=== PATIENT | male | born 1975 | race Caucasian/White ===

== ENCOUNTER → 2017-06-15 07:51 | Outpatient (CLI) | payer MEDICARE, MEDICAID, SELFPAY ==
[2017-06-15 09:04] LABS: Absolute Lymphocyte Count 2.77 X10^3/ul (0.83-4.51); Absolute Neutrophil Count 2.5 X10^3/uL (2.0-7.7); Basophil# 0.02 X10^3/uL; Basophil% 0.3 % (0-1); Eosinophil# 0.06 X10^3/uL; Hematocrit 46.3 % (40-54); Hemoglobin 15.7 g/dl (13.0-16.5); Lymphocyte # 2.77 X10^3/ul (4.0); Lymphocyte % 47.1 % (19-41); Mean Corp Hgb Conc 33.9 g/gl (32-36); Mean Corpuscular Hgb 31.4 pg (27.0-32.0); Mean Corpuscular Volume 92.6 fL (80-94); Mean Platelet Vol. 9.9 fl (6.2-12.0); Monocyte# 0.47 X10^3/uL; Neutrophil # 2.54 X10^3/uL (2.7-7.7); Neutrophil % 43.3 % (47-70); Platelet Count 289 K/mm3 (150-450); RBC Distribution Width CV 13.1 % (11.6-14.6); RBC Distribution Width SD 43.7 fl (35.1-43.9); White Blood Count 5.9 K/mm3 (4.4-11.0)
[2017-06-15 09:06] LABS: POSITIVE COUNT NO; POSITIVE DIFFERENTIAL NO; POSITIVE MORPHOLOGY NO
[2017-06-15 09:30] LABS: Valproic Acid (Depakene) Level 78 ug/mL (50-100)
[2017-06-15 09:31] LABS: AST(SGOT) 38 U/L (15-37); Alanine Aminotransfer ALT/SGPT 81 U/L (16-61); Albumin, Serum 4.1 g/dL (3.2-5.0); Alkaline Phosphatase 231 U/L (45-117); Anion Gap 8 (5-15); BUN 28 mg/dL (7-18); BUN/Creat Ratio 23.5 RATIO (10-20); Calcium,Total 9.4 mg/dL (8.5-10.1); Chloride 104 mmol/L (98-107); Creatinine, Serum 1.19 mg/dL (0.70-1.30); EST Glomerular Filtration Rate 72 mL/min (>60); Est Glom Filt Rate - Afr Amer 87 mL/min (>60); Globulin 4.1 g/dL (2.2-4.2); Glucose 91 mg/dL (74-106); Potassium 4.3 mmol/L (3.5-5.1); Protein, Total 8.2 g/dL (6.4-8.2); Sodium Level 140 mmol/L (136-145)
[2017-06-19 14:45] LABS: Lamotrigine (Lamictal) Level 7.3 ug/mL (2.0-20.0)
== END ==
PROVIDERS: Family Provider Family Medicine Geriatric Medicine; PCP Family Medicine Geriatric Medicine; Visit Provider Psychiatry & Neurology Neurology
DX: G40.109 Localization-related (focal) (partial) symptomatic epilepsy and epileptic syndromes with simple partial seizures, not intractable, without status epilepticus (principal)
CPT/HCPCS: 36415; 80053; 80164; 82542; 85025

== ENCOUNTER 2017-10-07 13:49 | Emergency (ER) | payer MEDICARE, MEDICAID, SELFPAY ==
[2017-10-07 13:50] VITALS: BP 121/82; PULSE 81; RESP 16; TEMP 37; O2SAT 98; BMI 27.2
--- NOTE | 2017-10-07 14:14 | CT_ITS ---
STUDY: CT ABDOMEN AND PELVIS WITHOUT CONTRAST REASON FOR EXAM: Male, 42 years old. Hematuria. RADIATION DOSAGE (If Supplied By Facility): CTDIvol = ( 12.27 ) mGy, DLP = ( 560.76 ) mGycm TECHNIQUE: Transaxial images were obtained from the dome of the diaphragm to the symphysis pubis without oral contrast, and without intravenous contrast. Sagittal and coronal images were reconstructed. Individualized dose optimization techniques were used for this CT. COMPARISON: None. FINDINGS: Evaluation of the abdominal viscera is limited in the absence of intravenous contrast. The visualized lung bases are clear. The visualized portions of the heart and pericardium are within normal limits. There are no calcified gallstones present. The liver demonstrates an unremarkable unenhanced appearance. The spleen is normal in size. The pancreas demonstrates an unremarkable unenhanced appearance. The adrenal glands are within normal limits. There are no obstructing renal stones. There is no hydronephrosis. Normal visualized stomach. There is no bowel obstruction or inflammation. The appendix is visualized and appears normal. The aorta is normal in caliber. There is no abdominal or pelvic free air, free fluid, fluid collection or lymphadenopathy. There are no destructive osseous lesions. There is bilateral spondylolysis at L5. CT/Abdomen/Pelvis without Cont IMPRESSION: No acute abdominal or pelvic pathology demonstrated on this noncontrast CT. Electronically Signed: Eddie Mandujano, at 15:24 EDT Tel , Service support ,
[2017-10-07] MEDS: Ondansetron 4 MG/2 ML Vial IV (14:31)
[2017-10-07] MEDS: 0.9% Normal Saline 1,000 ML 250 ML IV (14:31)
[2017-10-07] MEDS: Morphine 4 MG/ML Syringe IV (14:31)
[2017-10-07] MEDS: Ketorolac 30 MG/ML Syringe IV (14:31)
[2017-10-07 14:51] LABS: Absolute Neutrophil Count 3.4 X10^3/uL (2.0-7.7); Basophil# 0.04 X10^3/uL; Basophil% 0.6 % (0-1); Eosinophil# 0.04 X10^3/uL; Eosinophils% 0.6 % (0-5); Hematocrit 41.6 % (40-54); Hemoglobin 13.7 g/dl (13.0-16.5); Lymphocyte % 32.7 % (19-41); Mean Corp Hgb Conc 32.9 g/gl (32-36); Mean Corpuscular Hgb 30.1 pg (27.0-32.0); Mean Corpuscular Volume 91.4 fL (80-94); Monocyte# 0.93 X10^3/uL; Monocyte% 13.8 % (0-10); Neutrophil # 3.44 X10^3/uL (2.7-7.7); Neutrophil % 51.1 % (47-70); Platelet Count 213 K/mm3 (150-450); RBC Distribution Width CV 12.7 % (11.6-14.6); RBC Distribution Width SD 42.6 fl (35.1-43.9); Red Blood Count 4.55 M/mm3 (4.6-6.2); White Blood Count 6.7 K/mm3 (4.4-11.0)
[2017-10-07 14:52] LABS: POSITIVE COUNT NO; POSITIVE DIFFERENTIAL NO; POSITIVE MORPHOLOGY NO
[2017-10-07 14:55] LABS: Anion Gap 7 (5-15); BUN 23 mg/dL (7-18); BUN/Creat Ratio 21.9 RATIO (10-20); Calcium,Total 8.9 mg/dL (8.5-10.1); Chloride 106 mmol/L (98-107); Creatinine, Serum 1.05 mg/dL (0.70-1.30); EST Glomerular Filtration Rate 83 mL/min (>60); Est Glom Filt Rate - Afr Amer 100 mL/min (>60); Estimated Creatinine Clearance 84.39 ml/min; Glucose 99 mg/dL (74-106); Potassium 3.8 mmol/L (3.5-5.1); Sodium Level 141 mmol/L (136-145)
[2017-10-07 15:09] LABS: Valproic Acid (Depakene) Level 79 ug/mL (50-100)
--- NOTE | 2017-10-07 15:33 | ED.RN ---
pt is attempting to provide urine sample. Family is encouraging fluids very well.
[2017-10-07 15:43] LABS: Bacteria 0 SEEN /hpf (None Seen); Squamous Epithelial Cells - UA 0 SEEN /hpf (0-5); White Blood Cells 0 SEEN /hpf (0-5)
[2017-10-07 15:44] LABS: Color, Urine Yellow (Yellow); Glucose, Dipstick Normal (Normal); Ketone-Dipstick 5 mg/dl (Negative); Leukocyte Esterase-Dipstick 25 /ul (Negative); Nitrite-Dipstick Negative (Negative); Occult Blood-Urine Negative /ul (Negative); Protein-Dipstick 30 mg/dl (Negative); Urine Clarity Clear (Clear); Urine Urobilinogen 1 mg/dl (Normal)
[2017-10-07 16:10] LABS: Urine Bilirubin Dipstick 1 mg/dL (Negative)
[2017-10-07 16:12] LABS: Mucous, Urine 3+ /hpf (<or=2+); Red Blood Cells-Urine 0-5 SEEN /hpf (0-5)
--- NOTE | 2017-10-07 16:24 | ED.VISSUMM ---
- ER Visit Summary Date of Service: 10/07/17 Chief Complaint: Hematuria History of Present Illness: The patient is a [address] Fernandez. He has a history of severe mental retardation limiting his ability to contribute to the history. Workers at the care home report that there was the blood on his sheets this morning and blood in his underpants. It appeared as though he was urinating blood. He has not had a fever or vomiting. No diarrhea. Physical Examination: Vitals: Stable. Afebrile. General: Well-nourished and well-developed. Head: Normocephalic atraumatic. Neck: Supple, no lymphadenopathy. No JVD. Nontender. Cardiovascular: Regular rate and rhythm. No murmurs. Respiratory: No respiratory distress. Clear to auscultation bilaterally. Abdominal: Soft, nontender, nondistended, normal bowel sounds. No guarding, rebound, or peritoneal signs. Bladder is not distended Back: Nontender. Extremities: Nontender, no edema. Skin: Normal color, no rash. Neurologic: Alert. Moves all extremities well. Psych: Normal affect. Test Results: CBC is remarkable for monocytes of 14 and immature granulocytes of 1.2%. Chem-7 is remarkable for a BUN of 23. UA shows no blood. CT flank is normal. Normal appendix. No renal or ureteral stones. Emergency Department Course and Treatment: Patient was treated as though he had a kidney stone with morphine, Zofran, and Toradol IV. He is resting comfortably. Treatment Plan: Patient was discussed with Dr. Singh. He will be discharged instructions to follow-up in 4 days for another exam. Return to the emergency department for any worsening symptoms. Disposition: To home in improved and stable condition. Impression: 1. Reported hematuria. 2. Mental retardation. This note was generated with [employer] software. It may contain incorrect words, spelling, and punctuation that were not noted in review of the chart prior to signing ED Disposition - Plan for ED Patient: Chief Complaint: Complaint Instructions: ED Hematuria Referrals: Everardo Fernandez Chi, MD [Primary Care Provider] - 10/11/17
--- NOTE | 2017-10-07 16:32 | ED.DCSUM_ITS ---
- ER Visit Summary Date of Service: 10/07/17 Chief Complaint: Hematuria History of Present Illness: The patient is a [address] Fernandez. He has a history of severe mental retardation limiting his ability to contribute to the history. Workers at the snf report that there was the blood on his sheets this morning and blood in his underpants. It appeared as though he was urinating blood. He has not had a fever or vomiting. No diarrhea. Physical Examination: Vitals: Stable. Afebrile. General: Well-nourished and well-developed. Head: Normocephalic atraumatic. Neck: Supple, no lymphadenopathy. No JVD. Nontender. Cardiovascular: Regular rate and rhythm. No murmurs. Respiratory: No respiratory distress. Clear to auscultation bilaterally. Abdominal: Soft, nontender, nondistended, normal bowel sounds. No guarding, rebound, or peritoneal signs. Bladder is not distended Back: Nontender. Extremities: Nontender, no edema. Skin: Normal color, no rash. Neurologic: Alert. Moves all extremities well. Psych: Normal affect. Test Results: CBC is remarkable for monocytes of 14 and immature granulocytes of 1.2%. Chem-7 is remarkable for a BUN of 23. UA shows no blood. CT flank is normal. Normal appendix. No renal or ureteral stones. Emergency Department Course and Treatment: Patient was treated as though he had a kidney stone with morphine, Zofran, and Toradol IV. He is resting comfortably. Treatment Plan: Patient was discussed with Dr. Singh. He will be discharged instructions to follow-up in 4 days for another exam. Return to the emergency department for any worsening symptoms. Disposition: To home in improved and stable condition. Impression: 1. Reported hematuria. 2. Mental retardation. This note was generated with [employer] / ?.??ation software. It may contain incorrect words, spelling, and punctuation that were not noted in review of the chart prior to signing ED Disposition - Plan for ED Patient: Chief Complaint: Complaint Instructions: ED Hematuria Referrals: Everardo Fernandez Chi, MD [Primary Care Provider] - 10/11/17
[2017-10-07 16:56] VITALS: PULSE 86; RESP 16; O2SAT 98
== END 2017-10-07 16:57 | disposition home or self-care (01) ==
PROVIDERS: Emergency Provider Emergency Medicine; Family Provider Family Medicine Geriatric Medicine; PCP Family Medicine Geriatric Medicine
DX: R31.9 Hematuria, unspecified (principal); F79 Unspecified intellectual disabilities; F32.9 Major depressive disorder, single episode, unspecified; F98.8 Other specified behavioral and emotional disorders with onset usually occurring in childhood and adolescence; G40.909 Epilepsy, unspecified, not intractable, without status epilepticus; N40.1 Benign prostatic hyperplasia with lower urinary tract symptoms; R39.15 Urgency of urination; Z79.899 Other long term (current) drug therapy
CPT/HCPCS: 74176; 80048; 80164; 81001; 85025; 96361; 96374; 96375; 99283; J7030; A4216; J2405

== ENCOUNTER → 2017-10-16 11:59 | Outpatient (CLI) | payer MEDICARE, MEDICAID, SELFPAY ==
[2017-10-16 12:49] LABS: Absolute Lymphocyte Count 3.21 X10^3/ul (0.83-4.51); Absolute Neutrophil Count 5.2 X10^3/uL (2.0-7.7); Basophil# 0.03 X10^3/uL; Basophil% 0.3 % (0-1); Eosinophil# 0.09 X10^3/uL; Hematocrit 45.2 % (40-54); Lymphocyte # 3.21 X10^3/ul (4.0); Mean Corp Hgb Conc 33.2 g/gl (32-36); Mean Corpuscular Hgb 30.7 pg (27.0-32.0); Mean Corpuscular Volume 92.6 fL (80-94); Monocyte# 0.85 X10^3/uL; Neutrophil # 5.17 X10^3/uL (2.7-7.7); Neutrophil % 54.7 % (47-70); Platelet Count 286 K/mm3 (150-450); RBC Distribution Width SD 43.6 fl (35.1-43.9); Red Blood Count 4.88 M/mm3 (4.6-6.2); White Blood Count 9.4 K/mm3 (4.4-11.0)
[2017-10-16 12:52] LABS: POSITIVE COUNT NO; POSITIVE DIFFERENTIAL NO; POSITIVE MORPHOLOGY NO
[2017-10-16 12:56] LABS: Prothrombin Time (Protime)PT. 12.8 SECONDS (11.7-14.9)
[2017-10-16 13:02] LABS: Anion Gap 10 (5-15); BUN 28 mg/dL (7-18); BUN/Creat Ratio 25.9 RATIO (10-20); Calcium,Total 9.5 mg/dL (8.5-10.1); Chloride 101 mmol/L (98-107); Creatinine, Serum 1.08 mg/dL (0.70-1.30); EST Glomerular Filtration Rate 80 mL/min (>60); Est Glom Filt Rate - Afr Amer 97 mL/min (>60); Glucose 92 mg/dL (74-106); Potassium 4.5 mmol/L (3.5-5.1); Sodium Level 142 mmol/L (136-145)
== END ==
PROVIDERS: Family Provider Family Medicine Geriatric Medicine; PCP Family Medicine Geriatric Medicine; Visit Provider Family Medicine Geriatric Medicine
DX: Z01.818 Encounter for other preprocedural examination (principal); R53.83 Other fatigue; E11.9 Type 2 diabetes mellitus without complications; I48.0 Paroxysmal atrial fibrillation
CPT/HCPCS: 36415; 80048; 85025; 85610

== ENCOUNTER 2017-11-08 08:30 | Emergency (ER) | payer MEDICARE, MEDICAID, SELFPAY ==
[2017-11-08 08:32] VITALS: BP 129/74; PULSE 101; RESP 17; TEMP 37.5; O2SAT 94; BMI 28.7
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
[2017-11-08 10:52] VITALS: BP 112/69; PULSE 74; RESP 15; O2SAT 98
== END 2017-11-08 10:52 | disposition home or self-care (01) ==
PROVIDERS: Emergency Provider Emergency Medicine; Family Provider Family Medicine Geriatric Medicine; PCP Family Medicine Geriatric Medicine
DX: S16.1XXA Strain of muscle, fascia and tendon at neck level, initial encounter (principal); T71.9XXA Asphyxiation due to unspecified cause, initial encounter; Y93.89 Activity, other specified; Y92.199 Unspecified place in other specified residential institution as the place of occurrence of the external cause; F98.8 Other specified behavioral and emotional disorders with onset usually occurring in childhood and adolescence; F32.9 Major depressive disorder, single episode, unspecified; Z79.899 Other long term (current) drug therapy
CPT/HCPCS: 70450; 72125; 99282

== ENCOUNTER 2018-02-06 07:21 | Emergency (ER) | payer MEDICARE, MEDICAID, SELFPAY ==
[2018-02-06 07:22] VITALS: BP 129/83; PULSE 114; RESP 18; TEMP 36.7; O2SAT 92; BMI 26.3
--- NOTE | 2018-02-06 07:28 | RAD_ITS ---
STUDY: X-RAY - ABDOMEN/PELVIS REASON FOR EXAM: Male, 42 years old. Constipation TECHNIQUE: Two AP supine views of the abdomen and pelvis. COMPARISON: None. FINDINGS: Normal visualized lung bases. There is a moderate amount of colonic fecal material. There is no demonstrated free abdominal air. The visualized liver, spleen and kidneys are grossly normal in size and morphology. Normal soft tissue structures. Normal visualized osseous structures. RAD/Abdomen Single View IMPRESSION: Moderate fecal retention throughout the colon Electronically Signed: Aldair Quintero DO at 8:10 EDT Tel , Service support ,
--- NOTE | 2018-02-06 07:30 | ED.DCSUM_ITS ---
- ER Visit Summary Date of Service: 02/06/18 Chief Complaint: Aggressive behavior, abdominal pain History of Present Illness: The patient is a 42 M with history of MRDD who is currently in a senior care presents to the emergency department with abdominal pain. Apparently, the patient had aggressive behavior this morning. He was agitated towards staff. When his normal caregiver arrived, he calm down immediately. The patient is nonverbal. He had apparently signal to his caregiver that he was having a headache and is having some mild abdominal pain. He points right to his midepigastric area. He did state that he was able to eat yesterday without pain. He did state that he also moved his bowels yesterday. Patient does have a history of constipation. He also has multiple mental health diagnoses secondary to his MRDD. There is no history of abdominal surgery. He has not had fevers or chills. He is otherwise been in his normal state of health. Physical Examination: Patient is awake and alert. He answers questions by nodding yes or no. He does follow simple commands. His neuro exam is nonfocal. His heart is regular. His lungs are clear. His abdomen is soft, minimally tender in the midepigastric area without rebound or guarding. There is no hernia. There is no evidence of incarceration. His bowel sounds are normal. His skin is intact. Test Results: [] Emergency Department Course and Treatment: In discussion with the patient's primary caregiver, it seems as if he is having a prolonged grief reaction. His nephew recently about 2 weeks ago. She states that he does not seem to c omprehend his and has been more depressed. He did have a behavioral disturbance this morning which she states has been more common for him. Shortly thereafter, he was complaining of a headache and abdominal pain. His exam is reassuring. His abdomen is not significantly tender. There is no peritoneal signs. I did obtain plain films which demonstrate constipation which he has a history of. There is no perforation or evidence of obstruction. The patient also had a CT scan of his head within the past few months which was normal. At this time, I do feel that this is more likely secondary to his grief reaction. I do not suspect a dangerous process. I do feel that the patient is safe for outpatient therapy. With a GI cocktail, his abdominal pain has improved. He would be discharged back to his senior care. Treatment Plan: [] Disposition: Discharge Impression: 1. Midepigastric abdominal pain This note was generated with [employer] dictation software. It may contain incorrect words, spelling, and punctuation that were not noted in review of the chart prior to signing ED Disposition - Plan for ED Patient: Chief Complaint: Abd Pain Instructions: ED Constipation, ED Abdominal Pain Unkn Cause Referrals: Everardo Fernandez Chi, MD [Primary Care Provider] -
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
[2018-02-06] MEDS: Mag Hydrox/Al Hydrox/Simeth 30 ML UDC PO (07:37)
[2018-02-06 08:22] VITALS: BP 138/74; PULSE 69; RESP 16; O2SAT 95
== END 2018-02-06 08:22 | disposition home or self-care (01) ==
LOC: ED 07:33
PROVIDERS: Emergency Provider Emergency Medicine; Family Provider Family Medicine Geriatric Medicine; PCP Family Medicine Geriatric Medicine
DX: R10.13 Epigastric pain (principal); F79 Unspecified intellectual disabilities; R51 Headache
CPT/HCPCS: 74018; 99284

== ENCOUNTER → 2018-05-29 15:01 | Outpatient (CLI) | payer MEDICARE, MEDICAID, SELFPAY ==
[2018-05-29 17:29] LABS: Absolute Lymphocyte Count 3.33 X10^3/ul (0.83-4.51); Absolute Neutrophil Count 6.3 X10^3/uL (2.0-7.7); Basophil# 0.02 X10^3/uL; Basophil% 0.2 % (0-1); Eosinophils% 0.9 % (0-5); Hematocrit 44.2 % (40-54); Hemoglobin 14.3 g/dl (13.0-16.5); Lymphocyte # 3.33 X10^3/ul (4.0); Lymphocyte % 30.8 % (19-41); Mean Corp Hgb Conc 32.4 g/gl (32-36); Mean Corpuscular Hgb 31.1 pg (27.0-32.0); Mean Corpuscular Volume 96.1 fL (80-94); Mean Platelet Vol. 9.1 fl (6.2-12.0); Monocyte# 0.97 X10^3/uL; Neutrophil # 6.28 X10^3/uL (2.7-7.7); Platelet Count 205 K/mm3 (150-450); RBC Distribution Width CV 13.8 % (11.6-14.6); RBC Distribution Width SD 48.8 fl (35.1-43.9); White Blood Count 10.8 K/mm3 (4.4-11.0)
[2018-05-29 17:35] LABS: POSITIVE COUNT NO; POSITIVE DIFFERENTIAL NO; POSITIVE MORPHOLOGY NO
[2018-05-29 17:42] LABS: Vitamin D,25 Hydroxy 70.6 ng/mL (29.95-100.01)
[2018-05-29 17:47] LABS: ALB/GLOB Ratio 0.6 RATIO (0.9-2.4); AST(SGOT) 44 U/L (15-37); Alanine Aminotransfer ALT/SGPT 66 U/L (16-61); Albumin, Serum 3.3 g/dL (3.2-5.0); Alkaline Phosphatase 299 U/L (45-117); Anion Gap 10 (5-15); BUN 33 mg/dL (7-18); BUN/Creat Ratio 25.4 RATIO (10-20); Chloride 108 mmol/L (98-107); EST Glomerular Filtration Rate 65 mL/min (>60); Est Glom Filt Rate - Afr Amer 78 mL/min (>60); Globulin 5.4 g/dL (2.2-4.2); Glucose 107 mg/dL (74-106); Potassium 4.2 mmol/L (3.5-5.1); Protein, Total 8.7 g/dL (6.4-8.2); Sodium Level 144 mmol/L (136-145); Thyroid Stim Hormone (TSH) 1.91 uIU/mL (0.358-3.74)
--- OUTSIDE RECORDS SUMMARY | 2018-07-31 17:38 | XMS RPT_ITS ---
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 21.0-3 mmol/L Normal 2.0 CO2 28.0 LAB L501.6200 5-15 Normal GAP 7 Performed By: #### L500.2500 #### [facility] Laboratory [address] [place], [address] VALPROIC ACID Collected: 10/07/2017 Status: F Source: AMARILYS (DEPAKENE) LEVEL 2:30 PM [facility] REPOSITORY TYPE CODE TESTS RESULT OUT OF RANGE REFERENCE UNITS LAB L501.8100 50-100 ug/mL Normal VALPROIC ACID 79 Performed By: #### L501.8100 #### [facility] Laboratory [address] [place], [address] ABDOMEN/PELVIS WITHOUT Observed: 10/07/2017 Status: F Source: AMARILYS CONT 2:14 PM [facility] REPOSITORY [facility] Imaging Services [address] [address] Abdomen/Pelvis without Cont MR#: [id number] Acct: [id number] Name: SATYA ZHANG Rep #: [id number] : 1975 M 42 From: Eddie Mandujano MD PCP: Jim QUISPE,Everardo [facility] Status: REG ER Study: Abdomen/Pelvis without Cont Date of Exam: 10/07/17 Exam# [id number] Ordering Dr: Shay Borja MD STUDY: CT ABDOMEN AND PELVIS WITHOUT CONTRAST REASON FOR EXAM: Male, 42 years old. Hematuria. RADIATION DOSAGE (If Supplied By Facility): CTDIvol = ( 12.27 ) mGy, DLP = ( 560.76 ) mGycm TECHNIQUE: Transaxial images were obtained from the dome of the diaphragm to the symphysis pubis without oral contrast, and without intravenous contrast. Sagittal and coronal images were reconstructed. Individualized dose optimization techniques were used for this CT. COMPARISON: None. FINDINGS: Evaluation of the abdominal viscera is limited in the absence of intravenous contrast. The visualized lung bases are clear. The visualized portions of the heart and pericardium are within normal limits. There are no calcified gallstones present. The liver demonstrates an unremarkable unenhanced appearance. The spleen is normal in size. The pancreas demonstrates an unremarkable unenhanced appearance. The adrenal glands are within normal limits. There are no obstructing renal stones. There is no hydronephrosis. Normal visualized stomach. There is no bowel obstruction or inflammation. The appendix is visualized and appears normal. The aorta is normal in caliber. There is no abdominal or pelvic free air, free fluid, fluid collection or lymphadenopathy. There are no destructive osseous lesions. There is bilateral spondylolysis at L5. CT/Abdomen/Pelvis without Cont IMPRESSION: No acute abdominal or pelvic pathology demonstrated on this noncontrast CT. Electronically Signed: Eddie Mandujano, at 15:24 EDT Tel , Service support , CC: Shay Borja MD; Everardo Fernandez MD Clinical Documentation Nurse: Signed CBC W/DIFF, AUTOMATED Collected: 06/15/2017 Status: F Source: NEESES 7:56 AM [facility] REPOSITORY TYPE CODE TESTS RESULT OUT OF RANGE REFERENCE UNITS LAB L100.1000 4.4-11.0 K/mm3 Normal WBC 5.9 LAB L100.1200 4.6-6.2 M/mm3 Normal RBC 5.00 LAB L100.1300 13.0-16.5 g/dl Normal HGB 15.7 LAB L100.1400 40-54 % Normal HCT 46.3 LAB L100.1500 80-94 fL Normal MCV 92.6 LAB L100.1600 27.0-32.0 pg Normal MCH 31.4 LAB L100.1700 32-36 g/gl Normal MCHC 33.9 LAB L100.1810 11.6-14.6 % Normal RDW CV 13.1 LAB L100.1820 35.1-43.9 fl Normal RDW SD 43.7 LAB L100.1900 150-450 K/mm3 Normal PLT 289 LAB L100.2000 6.2-12.0 fl Normal MPV 9.9 LAB L100.2100 47-70 % Low NEUT% 43.3 LAB L100.2200 19-41 % High LY% 47.1 LAB L100.2300 0-10 % Normal MONO% 8.0 LAB L100.2400 0-5 % Normal EO% 1.0 LAB L100.2500 0-1 % Normal BASO% 0.3 LAB L100.2550 0.0-0.9 % Normal IM GRAN % 0.300 Result Comment: IG% - Immature Granulocytes (promyelocytes, myelocytes and metamyelocytes) > 1% indicates that a LEFT SHIFT is Present. LAB L100.2620 2.0-7.7 X10 3/uL Normal Absolute Neut 2.5 LAB L100.2720 0.83-4.51 X10 3/ul Normal Absolute Lymph 2.77 Performed By: #### L100.0100 #### [facility] Laboratory [address] [place], [place], [address] VALPROIC ACID Collected: 06/15/2017 Status: F Source: AMARILYS (DEPAKENE) [facility] 7:56 AM [facility] REPOSITORY TYPE CODE TESTS RESULT OUT OF RANGE REFERENCE UNITS LAB L501.8100 50-100 ug/mL Normal VALPROIC ACID 78 Performed By: #### L501.8100 #### [facility] Laboratory [address] [place], [place], [address] COMPREHENSIVE METABOLIC Collected: 06/15/2017 Status: F Source: AMARILYS PROFIL 7:56 AM [facility] REPOSITORY TYPE CODE TESTS RESULT OUT OF RANGE REFERENCE UNITS LAB L501.0100 74-106 mg/dL Normal GLU 91 Result Comment: Please note revised GLUCOSE reference range effective 2017. LAB L501.1000 7-18 mg/dL High BUN 28 LAB L501.1100 0.70-1.30 mg/dL Normal CREAT,SERUM 1.19 Result Comment: The validity of the calculated GFR AND GFRAA in patients over 70 years has not been determined. Clinical correlation is essential. LAB L501.1110 >60 mL/min Normal EST GFR 72 Result Comment: Non- GFR Calc LAB L501.1115 >60 mL/min Normal EST GFR - AA 87 Result Comment: GFR Calc LAB L501.1300 10-20 RATIO High BUN/CRE 23.5 LAB L501.1500 6.4-8.2 g/dL T Normal PROT 8.2 LAB L501.1800 3.2-5.0 g/dL Normal ALB 4.1 LAB L501.1950 2.2-4.2 g/dL Normal GLOB 4.1 LAB L501.2000 0.9-2.4 RATIO Normal A/G 1.0 LAB L501.2200 8.5-10.1 mg/dL CA Normal 9.4 LAB L501.4100 15-37 U/L High AST 38 LAB L501.4305 45-117 U/L High ALK P 231 LAB L501.4405 16-61 U/L High ALT 81 Result Comment: Please note revised ALT reference range effective 2017. LAB L501.4600 0.20-1.00 mg/dL Normal T BILI 0.50 LAB L501.5300 136-145 mmol/L Normal NA 140 LAB L501.5600 3.5-5.1 mmol/L Normal K 4.3 LAB L501.5900 98-107 mmol/L Normal CL 104 LAB L501.6100 21.0-32.0 mmol/L Normal CO2 28.0 LAB L501.6200 5-15 Normal GAP 8 Performed By: #### L500.4050 #### [facility] Laboratory [address] [place], [address] LAMOTRIGINE (LAMICTAL) Collected: 06/15/2017 Status: F Source: NEESES LEVEL 7:56 AM [facility] REPOSITORY TYPE CODE TESTS RESULT OUT OF RANGE REFERENCE UNITS LAB L3300.4400 2.0-20.0 ug/mL Normal LAMOTRIG 7.3 [id number] Result Comment: Detection Limit = 1.0 Performed at: - [facility] [id number] Iron Pellet Tester: Ana Bustos MD, Phone: [phone] Performed By: #### L3300.4400 #### [facility] (refer to report for specific site) refer to report for address and phone number ALLERGIES ALLERGIES DATE TYPE / CODE NAME / CODE REACTION SEVERITY SOURCE 02/06/2018 Drug No Known Unknown [facility] Allergy/416 Allergies/[id number] [facility] 319021(SN 88(RXNORM) Hospital ED CT) Repository 09/08/2009 DRUG BENZTROPINE [facility] INGREDI/419 Other [place] [address](SN Repository ED CT) 09/08/2009 DRUG BUSPIRONE [facility] INGREDI/419 Other [place] 067898(SNOM Repository ED CT) NG/[id number] BENZTROPINE [facility] 6([employer] CT) Repository NG/[id number] BUSPIRONE [facility] 6([employer] CT) Repository ENCOUNTERS ENCOUNTERS ADMIT/DISCHARGE ACCOUNT NUMBER ADMITTING ENCOUNTER LOCATION SOURCE CLASS 05/29/2018 [id number] [facility] ding:POLAB3 Repository 02/07/2018 [id number] Ambulatory [facility] Other [place] Repository 02/07/2018/02/08/20 [id number] Ambulatory [facility] [address] MEDICAL Repository PIGGOTTBuildi ng:AKLBB 02/07/2018/02/08/20 [id number] Ambulatory [address] Repository 02/07/2018/02/08/20 [id number] Ambulatory [address] MEDICAL Repository PIGGOTTBuildi ng:NEUSAGHB 02/06/2018/02/07/20 [id number] Emergency [address] ding:ED Repository 11/15/2017 [id number] Inpatient [facility] Repository ng:VIKI 11/08/2017/11/09/19 [id number] Emergency [address] ding:ED Repository 11/05/2017 [id number] Ambulatory [facility] Repository ng:BENITO 10/16/2017 [id number] Ambulatory [facility] ding:POLAB3 Repository 10/07/2017/10/08/19 [id number] Emergency [address] ding:ED Repository 06/15/2017 [id number] Ambulatory [facility] ding:LAB Repository PAYERS PAYERS ENCOUNTER GUARANTOR PAYER SUBSCRIBER SOURCE 05/29/2018 Satya Agustin Primary Satya Agustin [facility] [id number] Bank Insurance:MEDICARE KnightDOB: [facility] [id number] [address]Mbi: Number: Repository [id number] (HP) Date:2018-05-29 05/29/2018 Secondary Satya P [place] Insurance:MEDICAIDUpper [facility] Health SystemightDOB: [facility] icy Number: [id number] Hospital [id number] Repository Date:2018-05-29 05/29/2018 Tertiary NOT GIVENUNK [place] Insurance:SELF PAY [facility] Number: Effective Repository Date:2018-05-29 02/07/2018 ROLANDO Primary SATYA [facility]ae[facility] KNIGHTDOB: Insurance:MEDICARE A IGHTDOB: Health System AND BPolicy Number: [id number] Repository [facility] [id number] [place] Date: [address]Guh: () 02/07/2018 Secondary SATYA Pelaez [facility] Insurance:[facility]: [facility] MEDICAIDPolicy [id number] Repository Number: [id number] Date: 02/07/2018 ROLANDO Primary SATYA [facility] KNIGHTDOB: Insurance:MEDICARE A IGHTDOB: Health System AND BPolicy Number: [id number] Repository BANK [facility] [id number] [place], [place] Date: [address]Oyw: (HP) 02/07/2018 Secondary SATYA Pelaez General [facility] [id number] Repository Number: [id number] Date: 02/06/2018 Satya P Primary Satya P [place] [id number] Bank Insurance:MEDICARE ightDOB: [facility] [place] BPolicy [id number] [place] [address]Bur: Number: Repository [id number] (HP) Date:2018-02-06 02/06/2018 Secondary Satya P [place] Insurance:MEDICAIDUpper Allegheny Health SystemightDOB: [facility] icy Number: [id number] Hospital [id number] Repository Date:2018-02-06 02/06/2018 Tertiary NOT GIVENUNK [facility] Insurance:SELF PAY [facility] Number: Effective Repository Date:2018-02-06 11/15/2017 SATYA P Primary SATYA P RADHA [facility] [id number] BANK Insurance:[facility] icy Number: Repository [employer] HOME[employer] [id number] [place] Date:2005-12-05P O [address]Ggq: (330) [address]DKDA CODE [phone] (HP) [id number], [place] [address]LO: 11/15/2017 Secondary SATYA P RADHA [facility] Insurance:MEDICAID [facility] Number: Repository [id number] Date:2734-87-41XF [address] [address]RF: 11/08/2017 Satya P Primary Satya P [place] [id number] Bank Insurance:MEDICARE [facility] [id number] General Hospital [address]Oop: Number: Repository [id number] (HP) Date:2017-11-08 11/08/2017 Secondary Satya P Am[place] Insurance:MEDICAIDPol KnightDOB: [facility] Number: [id number] Hospital [id number] Repository Date:2017-11-08 11/08/2017 Tertiary NOT GIVENUNK [place] Insurance:SELF PAY [facility] Number: Effective Repository Date:2017-11-08 11/05/2017 SATYA P Primary SATYA P RADHA [facility] [id number] BANK Insurance:MEDICAREPol [facility] icy Number: Repository [employer] [id number] [place] Date:2005-12-05P O 23[address]Kpr: (330) [address]CBQC CODE [phone] (HP) [id number], [place] [address]KI: 11/05/2017 Secondary SATYA P RADHA [facility] Insurance:MEDICAID [facility] Number: Repository [id number] Date:1211-74-09BN [address], [place] [address]ZS: 10/16/2017 Satya P Primary Satya P [place] [id number] Bank Insurance:MEDICARE KnightDOB: [facility] [id number] General Hospital [address]Zxs: Number: Repository [id number] (HP) Date:2017-10-16 10/16/2017 Secondary Satya P Amar[place]ys Insurance:MEDICAIDPol KnightDOB: [facility] ic Number: [id number] Hospital [id number] Repository Date:2017-10-16 10/16/2017 Tertiary NOT GIVENUNK [place] Insurance:SELF PAY [facility] Number: Effective Repository Date:2017-10-16 10/07/2017 Satya P Primary Satya P Amar[place]ys [id number] Bank Insurance:MEDICARE KnightDOB: [facility] A [facility] [id number] General Hospital [address]Spm: Number: Repository [id number] (HP) Date:2017-10-07 10/07/2017 Secondary Satya P Amarilys Insurance:MEDICAIDPol KnightDOB: [facility] ic Number: [id number] Hospital [id number] Repository Date:2017-10-07 10/07/2017 Tertiary NOT GIVENUNK [place] Insurance:SELF PAY [facility] Number: Effective Repository Date:2017-10-07 06/15/2017 Satya P Primary Satya P [place] [id number] Bank Insurance:MEDICARE KnightDOB: [facility] [id number] General Hospital [address]Zas: Number: Repository [id number] (HP) Date:2017-06-15 06/15/2017 Secondary Satya P Amarilys Insurance:MEDICAIDPol KnightDOB: [facility] icy Number: [id number] Hospital [id number] Repository Date:2017-06-15 06/15/2017 Tertiary NOT GIVENUNK [place] Insurance:SELF PAY [facility] Number: Effective Repository Date:2017-06-15
== END ==
PROVIDERS: Family Provider Family Medicine Geriatric Medicine; PCP Family Medicine Geriatric Medicine; Visit Provider Family Medicine Geriatric Medicine
DX: E55.9 Vitamin D deficiency, unspecified (principal); R53.83 Other fatigue
CPT/HCPCS: 36415; 80053; 82306; 84443; 85025